=== PATIENT | female | born 1970 | race Caucasian/White ===

== ENCOUNTER 2017-02-28 17:37 | Emergency (ER) | payer OTHER ==
[2017-02-28 17:43] VITALS: BMI 55.4
--- NOTE | 2017-02-28 19:23 | PDOC ---
History of Present Illness - General Chief Complaint: Lightheaded Stated Complaint: HEADACHE Time Seen by Provider: 02/28/17 19:23 History Source: Patient - History of Present Illness Initial Comments: 03/01/17 00:25 Patient is a 46 y.o. female with a PMH of asthma, chronic cellulitis, chronic stage three lymphedema, morbid obesity who presents c/o L sided groin pain as well as exacerbation of her vertigo. Patient states the pain is constant, non- radiating and denies any associated nausea, vomiting, constipation, diarrhea, fevers, chills. Patient also c/o of exacerbation of her chronic vertigo not relieved by her usual dose of Meclizine (25 mg QD). Past History - Past Medical History Allergies/Adverse Reactions: Allergies Allergy/AdvReac Type Severity Reaction Status Date / Time No Known Allergies Allergy Verified 02/28/17 17:42 Home Medications: Ambulatory Orders Albuterol Sulfate Inhaler - [Ventolin HFA Inhaler -] 2 inh PO Q4H #1 inh Prednisone [Deltasone -] 10 mg PO DAILY #10 tablet 07/28/14 Sodium Chloride Inhalation [Normal Saline For Inhalation -] 3 ml IH Q6H PRN #20 vial.neb 07/28/14 Magnesium Citrate [Citroma -] 195 ml PO ONCE #1 bottle 01/13/16 Polyethylene Glycol 3350 [Miralax (For Daily Use) -] 17 gm PO DAILY #1 bottle Apixaban [Eliquis] 5 mg PO DAILY 02/28/17 Calcium Citrate/Vitamin D3 [Calcium Citrate - Vit D Caplet] 1 each PO DAILY 09/09 Meclizine HCl 25 mg PO DAILY 02/28/17 Metoprolol Succinate [Toprol Xl] 50 mg PO DAILY 02/28/17 Acetaminophen [Tylenol -] 1,000 mg PO Q6H #16 tablet 03/01/17 Asthma: Yes Cardiac Disorders: Yes (A FIB) COPD: No - Surgical History Abdominal Surgery: Yes (HERNIA) Gastric Stapling: No (GASTRIC SLEEVE) - Immunization History Immunization Up to Date: Yes - Suicide/Smoking/Psychosocial Hx Smoking History: Never smoked Number of Cigarettes Smoked Daily: 1 Hx Alcohol Use: No Drug/Substance Use Hx: No Substance Use Type: None Review of Systems - Review of Systems Constitutional: No: Chills, Fever Respiratory: No: Shortness of Breath Cardiac (ROS): No: Lightheadedness ABD/GI: No: Constipated, Diarrhea, Nausea, Vomiting : No: Burning, Dysuria All Other Systems: Reviewed and Negative *Physical Exam - Vital Signs Last Vital Signs Temp Pulse Resp BP Pulse Ox 97.8 F 73 17 123/72 99 02/28/17 19:13 02/28/17 19:13 02/28/17 19:13 02/28/17 19:13 02/28/17 19:13 - Physical Exam General Appearance: Yes: Nourished, Appropriately Dressed Neck: positive: Trachea midline, Supple Respiratory/Chest: positive: Lungs Clear Cardiovascular: positive: S1, S2 Gastrointestinal/Abdominal: positive: Normal Bowel Sounds, Soft. negative: Distended, Guarding, Rebound, Tenderness Extremity: positive: Normal Capillary Refill, Normal Inspection, Other (B/L LE edema) Integumentary: positive: Normal Color, Dry, Warm Neurologic: positive: Fully Oriented, Alert ED Treatment Course - LABORATORY CBC & Chemistry Diagram: 02/28/17 20:03 02/28/17 20:03 Medical Decision Making - Medical Decision Making 03/01/17 05:09 Patient is a 46 y.o. female who presents with L sided groin pain as well as exacerbation of chronic vertigo. Spiral CT negative for acute pathology and patient's pain resolved during course of admission. Patient discharged home with return precautions and instruction to follow up with PCP. *DC/Admit/Observation/Transfer Diagnosis at time of Disposition: Groin pain - Discharge Dispostion Disposition: HOME Condition at time of disposition: Good Admit: No - Prescriptions Prescriptions: Acetaminophen [Tylenol -] 1,000 mg PO Q6H #16 tablet - Referrals Referrals: Luisito Orosco [Primary Care Provider] - - Patient Instructions Printed Discharge Instructions: DI for Abdominal Pain-Adult Additional Instructions: Please follow up with your primary care doctor in the next 48 hours. Please return to the Emergency Department for any worsening or concerning symptoms. - Post Discharge Activity
[2017-02-28] MEDS ORDERED: ALBUTEROL SO4 2.5/IPRATROPIUM 0.5 INH SOL 3 ML VIAL.NEB. NEB ONE ×4 (19:48→21:00)
[2017-02-28] MEDS ORDERED: MECLIZINE HCL 25 MG TABLET (FP) PO ONE (19:49)
--- NOTE | 2017-02-28 19:51 | PDOC ---
Attending Attestation - HPI HPI: 02/28/17 21:10 46 year old female with significant PMH of asthma, chronic lymphedema, chronic cellulitis, diverticulitis, who presents to the emergency room complaining of 2 days of dizziness like the room is spinning. <Addis Phelps - Last Filed: 02/28/17 21:10> - Resident Resident Name: Margarita Rea - ED Attending Attestation I have performed the following: I have examined & evaluated the patient, The case was reviewed & discussed with the resident, I agree w/resident's findings & plan, Exceptions are as noted - Physicial Exam PE: 02/28/17 21:06 *Physical Exam General Appearance: Yes: Appropriately Dressed. No: Apparent Distress, Intoxicated HEENT: positive: EOMI, FABIENNE, Normal ENT Inspection, Normal Voice, TMs Normal, Pharynx Normal. negative: Pale Conjunctivae, Photophobia, Scleral Icterus (R), Scleral Icterus (L) Neck: positive: Trachea midline, Normal Thyroid, Supple. negative: Tender, Rigid, Carotid bruit, Stridor, Lymphadenopathy (R), Lymphadenopathy (L), Thyromegaly Respiratory/Chest: positive: Lungs Clear, Normal Breath Sounds. negative: Chest Tender, Respiratory Distress, Accessory Muscle Use, Labored Respiration, RES, Crackles, Rales, Rhonchi, Stridor, Wheezing, Dullness Cardiovascular: positive: Regular Rhythm, Regular Rate, S1, S2. negative: Edema , JVD, Murmur, Bradycardia, Tachycardia Vascular Pulses: Dorsalis-Pedis (R): 2+, Doralis-Pedis (L): 2+ Gastrointestinal/Abdominal: positive: Normal Bowel Sounds, Flat, Soft. negative : Tender, Organomegaly, Pulsatile Mass, Increased Bowel Sounds, Decreased BS, Distended, Guarding, Rebound, Hernia, Hepatomegaly, Spleenomegaly Lymphatic: negative: Adenopathy, Tenderness Musculoskeletal: positive: Normal Inspection. negative: CVA Tenderness, Decreased Range of Motion Extremity: positive: Normal Capillary Refill, Normal Inspection, Normal Range of Motion, Pelvis Stable. negative: Tender, Pedal Edema, Swelling, Erythema Integumentary: positive: Normal Color, Dry, Warm. negative: Cyanotic, Erythema , Jaundice, Rash Neurologic: positive: wire splicer II-XII NML intact, Fully Oriented, Alert, Normal Mood/ Affect, Motor Strength 5/5. negative: EOM Palsy, Facial Droop, Sensory Deficit - Medical Decision Making 03/01/17 00:31 Pt treated and released. Advised to increase her Meclizine from 25mg to 50mg every 8 hours. <Rodríguez Allan - Last Filed: 03/01/17 00:32>
[2017-02-28 20:14] LABS: BASOPHIL 0.8 % (0-2.0); EOSINOPHIL 1.7 % (0-4.5); MCH 30.1 pg (25.7-33.7); MCHC 33.4 g/dl (32.0-36.0); MEAN CELL VOLUME 90.1 fl (80-96); MEAN PLT VOLUME 8.6 fl (7.5-11.1); NEUTROPHILS 65.1 % (42.8-82.8); PLATELET COUNT 284 K/MM3 (134-434); RDW 14.3 % (11.6-15.6); WHITE BLOOD COUNT 8.2 K/mm3 (4.0-10.0)
[2017-02-28] MEDS ORDERED: MECLIZINE HCL 25 MG TABLET (FP) ONE (20:40)
[2017-02-28] MEDS ORDERED: FUROSEMIDE 40 MG/4 ML INJECTABLE VIAL IVPUSH ONE (20:55)
[2017-02-28] MEDS ORDERED: FUROSEMIDE 40 MG/4 ML INJECTABLE VIAL ONE (21:01)
[2017-02-28 21:05] LABS: ALBUMIN 3.9 g/dl (3.4-5.0); ANION GAP 7 (8-16); CALCIUM 9.5 mg/dL (8.5-10.1); CO2 28 mmol/L (21-32); GLUCOSE,RANDOM 81 mg/dL (74-106)
[2017-02-28 21:08] LABS: ALK PHOS 79 U/L (45-117); BILIRUBIN,TOTAL 0.8 mg/dL (0.2-1.0); CREATININE 0.5 mg/dL (0.55-1.02); SGOT/AST 11 U/L (15-37); SGPT/ALT 17 U/L (12-78); TOT PROT 7.2 g/dl (6.4-8.2)
[2017-02-28 23:15] VITALS: TEMP 98.2
[2017-03-01 02:10] VITALS: BP 110/61; PULSE 72
--- NOTE | 2017-03-06 14:39 | EKG ---
Test Reason : Blood Pressure : / mmHG Vent. Rate : 073 BPM Atrial Rate : 073 BPM P-R Int : 170 ms QRS Dur : 092 ms QT Int : 410 ms P-R-T Axes : 031 -38 027 degrees QTc Int : 451 ms POOR DATA QUALITY, INTERPRETATION MAY BE ADVERSELY AFFECTED NORMAL SINUS RHYTHM POSSIBLE LEFT ATRIAL ENLARGEMENT LEFT AXIS DEVIATION LEFT VENTRICULAR HYPERTROPHY ABNORMAL ECG WHEN COMPARED WITH ECG OF 13-JAN-2016 01:57, NO SIGNIFICANT CHANGE WAS FOUND Confirmed by TAL DIETZ MD ([id number]) on 03/06/2017 2:39:07 PM Referred By: Confirmed By:TAL DIETZ MD
== END 2017-03-01 02:17 | disposition home or self-care (01) ==
LOC: JER 17:37
PROC: 3E0F7GC Introduction of Other Therapeutic Substance into Respiratory Tract, Via Natural or Artificial Opening (ICD-10-PCS; principal; 2017-02-28)
PROC: 3E033GC Introduction of Other Therapeutic Substance into Peripheral Vein, Percutaneous Approach (ICD-10-PCS; 2017-02-28)
DX: R10.32 Left lower quadrant pain (principal); E66.01 Morbid (severe) obesity due to excess calories; Z68.43 Body mass index [BMI] 50.0-59.9, adult; J45.909 Unspecified asthma, uncomplicated; I89.0 Lymphedema, not elsewhere classified; I48.91 Unspecified atrial fibrillation; Z98.84 Bariatric surgery status
CPT/HCPCS: 36415; 74176; 80053; 81003; 84703; 85025; 87086; 93005; 93010; 99284-25